=== PATIENT | male | born 1945 | race Caucasian/White ===

== ENCOUNTER 2018-08-09 06:41 | Emergency (ER) | payer OTHER ==
[2018-08-09 06:57] VITALS: TEMP 97.8; BMI 29.9
--- NOTE | 2018-08-09 07:20 | PDOC ---
Attending Attestation - Resident Resident Name: Aminta Bauer - ED Attending Attestation I have performed the following: I have examined & evaluated the patient, The case was reviewed & discussed with the resident, I agree w/resident's findings & plan, Exceptions are as noted - HPI HPI: 08/09/18 07:56 73y hx of bph presents with urinary retention. The pt endores having a decreaesd urine stream recently, and notes he hasnt easily urinated since last night. He was able to force out a small amount of urine this morning. deines fever/chills, back pain, cp, n/v, dysuria, diarrhea. on exam: pt has a slightly distended abdomen delfina tis ttp uncircumcised penis no cva tenderness unable pass a coudet will notify urology 08/09/18 10:14 pierre placed by urology pierre draining will dc with flomax pt feeling significna timproved labs nromal - Physicial Exam PE: 08/09/18 10:14 see above
--- NOTE | 2018-08-09 07:51 | PDOC ---
History of Present Illness - General Chief Complaint: Pain, Acute Stated Complaint: ABD PAIN Time Seen by Provider: 08/09/18 07:00 History Source: Patient - History of Present Illness Initial Comments: 08/09/18 07:32 73M w/ pmhx of BPH presents with inability to urinate since 6 pm last night. Pt at bedside with his family. Denies having these symptoms before, however and not currently taking any medications for BPH. Per , she has noticed pt has had poor urinary stream over the past couple of months. Pt not currently on BPH meds. Denies hx of kidney stones, fam hx of kidney stones, kidney issues. Denies dysuria, hematuria, or discharge. Of note, pt saw a urologist many years ago and was told he had slight inflammation, however no intervention was needed at the time. Denies fever/chills, headache/dizziness, nausea/vomiting, difficulty walking. Admits to chronic back pain. Not currently on any daily meds. PCP: Dr. 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 Past History - Past Medical History Allergies/Adverse Reactions: Allergies Allergy/AdvReac Type Severity Reaction Status Date / Time No Known Allergies Allergy Verified 08/09/18 08:14 Home Medications: Ambulatory Orders NK [No Known Home Medication] 08/09/18 - Suicide/Smoking/Psychosocial Hx Smoking History: Never smoked Have you smoked in the past 12 months: No Information on smoking cessation initiated: No Hx Alcohol Use: No Drug/Substance Use Hx: No Review of Systems - Review of Systems Able to Perform ROS?: Yes Is the patient limited Stateless proficient: No Constitutional: No: Chills, Fever Respiratory: No: Shortness of Breath Cardiac (ROS): No: Chest Pain ABD/GI: No: Constipated, Diarrhea : Yes: Incontinence, Other (bladder distension). No: Burning, Dysuria, Discharge Musculoskeletal: Yes: Back Pain (chronic) Neurological: No: Headache *Physical Exam - Vital Signs Last Vital Signs Temp Pulse Resp BP Pulse Ox 97.8 F 127 H 19 150/107 H 96 08/09/18 06:51 08/09/18 06:51 08/09/18 06:51 08/09/18 06:51 08/09/18 06:51 - Physical Exam General Appearance: Yes: Apparent Distress HEENT: positive: Normal Voice Neck: positive: Supple Respiratory/Chest: positive: Lungs Clear, Normal Breath Sounds Cardiovascular: positive: Regular Rhythm, Regular Rate, S1, S2. negative: Murmur Gastrointestinal/Abdominal: positive: Distended (bladder distension) Male Genitalia: positive: normal genitalia. negative: discharge Extremity: negative: Pedal Edema, Swelling Integumentary: positive: Normal Color, Dry, Warm Neurologic: positive: qa tester II-XII NML intact, Fully Oriented, Alert ED Treatment Course - LABORATORY CBC & Chemistry Diagram: 08/09/18 08:06 08/09/18 08:06 Medical Decision Making - Medical Decision Making 08/09/18 08:19 73M w/ pmhx of BPH presents with inability to urinate since 6pm last night. 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 Potter, will assess pt in the ED 08/09/18 08:58 -Peirre catheter inserted by uro; Recommended pt to discharge home with pierre catheter and follow up outpatient. Rx Flomax per uro recs. 08/09/18 09:08 -CBC showed slightly elevated WBC 11.6, although may be reactive due to pain. CMP unremarkable. -U/A and UCx ordered 08/09/18 10:04 -U/A neg, some RBCs shown, but likely due to trauma from initial catheter insertion. DC to home with recommendations stated above. Case discussed with Dr. Leonard. (ED attending) -Aminta Bauer DO - PGY1 *DC/Admit/Observation/Transfer Diagnosis at time of Disposition: Urinary retention due to benign prostatic hyperplasia - Discharge Dispostion Disposition: HOME Condition at time of disposition: Improved Decision to Admit order: No - Referrals Referrals: Wil Potter MD [Staff Physician] - - Patient Instructions Printed Discharge Instructions: How to Care for Your Pierre Catheter -- Male, DI for Benign Prostatic Hyperplasia Additional Instructions: You were seen in the ED for complaints of urinary retention. In the ED, you were seen by a urologist and a pierre catheter was placed to relieve your urinary retention. Your symptoms improved during your ED visit. There is no acute need for hospitalization at this time. You are being discharged home. MEDICATION RECOMMENDATIONS Please take Flomax 0.4 mg once a day. CONSULT RECOMMENDATIONS: Please follow up with your urologist, Dr. Potter, within 1 week for further evaluation of your symptoms. If you experience worsening abdominal pain, persistent bladder distension, blood or discharge in your urine, or persistent pain associated with your catheter, fever/chills proceed to your nearest emergency room immediately. - Post Discharge Activity
[2018-08-09 08:21] LABS: BASO % 0.3 % (0-2.0); HEMATOCRIT 46.3 % (35.4-49); HEMOGLOBIN 15.2 GM/dL (11.7-16.9); LYMPH % 7.2 % (8-40); MCH 29.5 pg (25.7-33.7); MCHC 32.9 g/dl (32.0-35.9); MEAN CELL VOLUME 89.5 fl (80-96); MEAN PLT VOLUME 8.9 fl (7.5-11.1); MONO % 4.8 % (3.8-10.2); NEUT % 87.7 % (42.8-82.8); PLATELET COUNT 221 K/MM3 (134-434); RBC 5.17 M/mm3 (4.00-5.60); RDW 14.4 % (11.9-15.9); WHITE BLOOD COUNT 11.6 K/mm3 (4.0-10.0)
[2018-08-09 08:48] LABS: ALBUMIN 4.2 g/dl (3.4-5.0); ALK PHOS 70 U/L (45-117); ANION GAP 9 MMOL/L (8-16); BILIRUBIN,TOTAL 0.5 mg/dL (0.2-1); BLOOD UREA NITROGEN 16 mg/dL (7-18); CALCIUM 9.4 mg/dL (8.5-10.1); CHLORIDE 106 mmol/L (98-107); CO2 23 mmol/L (21-32); GLUCOSE,RANDOM 108 mg/dL (74-106); POTASSIUM 4.2 mmol/L (3.5-5.1); SGOT/AST 27 U/L (15-37); SGPT/ALT 31 U/L (13-61); SODIUM 137 mmol/L (136-145); TOT PROT 7.7 g/dl (6.4-8.2)
--- NOTE | 2018-08-09 08:59 | CON.GU ---
Consult - History of Present Illness History of Present Illness: 73 yo male with h/o BPH/phimosis, now with retention, pierre could not be placed by ER staff - Alcohol/Substance Use Hx Alcohol Use: No - Smoking History Smoking history: Never smoked Have you smoked in the past 12 months: No Home Medications - Allergies Allergies/Adverse Reactions: Allergies Allergy/AdvReac Type Severity Reaction Status Date / Time No Known Allergies Allergy Verified 08/09/18 08:14 - Home Medications Home Medications: Ambulatory Orders NK [No Known Home Medication] 08/09/18 Physical Exam- Vital Signs: Vital Signs Temperature 97.8 F 08/09/18 06:51 Pulse Rate 127 H 08/09/18 06:51 Respiratory Rate 19 08/09/18 06:51 Blood Pressure 150/107 H 08/09/18 06:51 O2 Sat by Pulse Oximetry (%) 96 08/09/18 06:51 Renal/: Yes: Bladder Distention Labs: CBC, BMP 08/09/18 08:06 08/09/18 08:06 Problem List - Problems (1) Urinary retention due to benign prostatic hyperplasia Assessment/Plan: 18 fr coude placed, approx 1liter of urine retrieved Code(s): N40.1 - BENIGN PROSTATIC HYPERPLASIA WITH LOWER URINARY TRACT SYMP; R33.8 - OTHER RETENTION OF URINE
[2018-08-09 09:36] LABS: URINE APPEARANCE CLEAR; URINE BILIRUBIN NEGATIVE (<2.0 mg/dL); URINE COLOR LTYELLOW; URINE GLUCOSE (UA) NEGATIVE (NEGATIVE); URINE KETONE TRACE (NEGATIVE); URINE LEUK ESTERASE NEGATIVE (NEGATIVE); URINE NITRITE NEGATIVE (NEGATIVE); URINE PROTEIN NEGATIVE (NEGATIVE); URINE UROBILINOGEN NEGATIVE mg/dL (0.2-1.0)
[2018-08-09 09:59] LABS: URINE MUCUS RARE
[2018-08-09 10:15] VITALS: BP 114/96; PULSE 106
== END 2018-08-09 10:18 | disposition home or self-care (01) ==
LOC: JER 06:41
DX: N40.1 Benign prostatic hyperplasia with lower urinary tract symptoms (principal); R33.8 Other retention of urine
CPT/HCPCS: 36415; 80053; 81003; 81015; 85025; 87086; 99283-25

== ENCOUNTER 2021-05-11 18:05 | Inpatient (IN) | payer OTHER ==
[2021-05-11] MEDS ORDERED: SODIUM CHLORIDE 0.9% 500 ML INFUS.BAG IV ONE (20:11)
[2021-05-11 21:37] LABS: BASO % 0.3 % (0-2.0); EOS % 0.3 % (0-4.5); HEMATOCRIT 30.4 % (35.4-49); HEMOGLOBIN 10.1 GM/dL (11.7-16.9); LYMPH % 5.5 % (8-40); MCH 27.8 pg (25.7-33.7); MCHC 33.4 g/dl (32.0-35.9); MEAN CELL VOLUME 83.2 fl (80-96); MEAN PLT VOLUME 7.6 fl (7.5-11.1); MONO % 6.9 % (3.8-10.2); PLATELET COUNT 404 10^3/uL (134-434); RBC 3.65 M/mm3 (4.00-5.60); RDW 14.4 % (11.9-15.9); WHITE BLOOD COUNT 18.7 K/mm3 (4.0-10.0)
[2021-05-11 21:52] LABS: CHLORIDE 103 mmol/L (98-107); SODIUM 135 mmol/L (136-145)
[2021-05-11 22:19] LABS: EPI CELLS 10 /uL (0-25.1); HYALINE CASTS 4 /uL (0-3.1); PH,URINE 5.5 (5.0-8.0); URINE APPEARANCE CLEAR; URINE BACTERIA 19 /uL (0-1359); URINE BILIRUBIN NEGATIVE (NEGATIVE); URINE COLOR DK YELLOW; URINE GLUCOSE (UA) NEGATIVE (NEGATIVE); URINE KETONE NEGATIVE (NEGATIVE); URINE LEUK ESTERASE NEGATIVE (NEGATIVE); URINE NITRITE NEGATIVE (NEGATIVE); URINE PROTEIN 1+ (NEGATIVE); URINE RBC 11 /uL (0-23.9); URINE WBC 32 /uL (0-25.8)
[2021-05-11 22:19] LABS: ALBUMIN 1.7 g/dl (3.4-5.0); ALK PHOS 154 U/L (45-117); ANION GAP 8 MMOL/L (8-16); BILIRUBIN,TOTAL 0.4 mg/dL (0.2-1); BLOOD UREA NITROGEN 19.9 mg/dL (7-18); CALCIUM 8.1 mg/dL (8.5-10.1); CO2 23 mmol/L (21-32); CREATININE 0.8 mg/dL (0.55-1.3); GLUCOSE,RANDOM 122 mg/dL (74-106); MAGNESIUM 2.5 mg/dL (1.8-2.4); PHOSPHOROUS 3.2 mg/dL (2.5-4.9); SGOT/AST 195 U/L (15-37); SGPT/ALT 188 U/L (13-61)
[2021-05-11 23:24] LABS: INR 1.44 (0.83-1.09); PROTHROMBIN TIME (PATIENT) 17.2 SEC (9.7-13.0)
[2021-05-11 23:27] LABS: ACTIVATED PTT 29.4 SECONDS (25.2-36.5)
[2021-05-12] MEDS ORDERED: AZITHROMYCIN IVPB 500 MG in DEXTROSE 5%-WATER - 250 ML IVPB ONE (01:31)
[2021-05-12] MEDS ORDERED: CEFTRIAXONE 1 GM in DEXTROSE 5%-WATER - 100 ML IVPB ONE (01:31)
[2021-05-12] MEDS ORDERED: AZITHROMYCIN IVPB 500 MG/250 ML BAG IVPB ONE (01:43)
[2021-05-12] MEDS ORDERED: CEFTRIAXONE 1 GM/50 ML BAG ONE (01:43)
[2021-05-12 02:26] LABS: RETICULOCYTES 1.32 % (0.5-1.5)
[2021-05-12 02:28] LABS: GAMMA GLUTAMYL TRANSPEPTIDASE 58 U/L (5-85)
[2021-05-12 02:32] LABS: IRON SERUM 15 ug/dL (50-175)
[2021-05-12 02:36] LABS: TOTAL IRON BINDING CAPACITY 110 ug/dL (250-450)
[2021-05-12] MEDS ORDERED: VANCOMYCIN 1 GM in D5W (PRE-DOCKED) 1,000 MG/250 ML IVPB ONE (04:36)
[2021-05-12] MEDS ORDERED: SODIUM CHLORIDE FOR INHALATION 3 ML VIAL.NEB IH ONE (04:39)
[2021-05-12] MEDS ORDERED: SODIUM CHLORIDE 1,000 ML IV SCH (04:45)
[2021-05-12] MEDS ORDERED: PIPERACILLIN/TAZOB 3.375 GM 3.375 GM/50 ML BAG IVPB ONE ×2 (06:13→12:26)
[2021-05-12] MEDS: PIPERACILLIN/TAZOB 3.375 GM 3.375 GM in DEXTROSE 5%-WATER - 50 ML IVPB SCH ×2 (06:45→13:15)
[2021-05-12] MEDS ORDERED: VANCOMYCIN 1 GRAM (PRE-DOCKED) 1,000 MG/250 ML BAG IVPB ONE (07:21)
[2021-05-12 08:18] LABS: CALCIUM 7.9 mg/dL (8.5-10.1)
[2021-05-12 08:19] LABS: ALBUMIN 1.6 g/dl (3.4-5.0); BLOOD UREA NITROGEN 15.9 mg/dL (7-18)
[2021-05-12 08:20] LABS: MAGNESIUM 2.5 mg/dL (1.8-2.4)
[2021-05-12 08:22] LABS: CREATININE 0.7 mg/dL (0.55-1.3); PHOSPHOROUS 3.5 mg/dL (2.5-4.9)
[2021-05-12 08:24] LABS: BILIRUBIN,TOTAL 0.5 mg/dL (0.2-1); TOT PROT 5.8 g/dl (6.4-8.2)
[2021-05-12] MEDS ORDERED: POLYETHYLENE GLYCOL (HEALTHYLAX) 3350 17 GM PACKET ONE (11:32)
[2021-05-12] MEDS ORDERED: ENOXAPARIN NA (PORCINE) 40 MG/0.4 ML DISP.SYRIN SQ ONE (11:33)
[2021-05-12] MEDS: IRON SUCROSE INJECTION 100 MG in SODIUM CHLORIDE 95 ML IVPB SCH (11:50)
[2021-05-12] MEDS: ENOXAPARIN NA (PORCINE) 40 MG/0.4 ML DISP.SYRIN SQ SCH (12:03)
[2021-05-12] MEDS: POLYETHYLENE GLYCOL (HEALTHYLAX) 3350 17 GM PACKET PO SCH ×2 (12:04→22:51)
[2021-05-12 14:13] LABS: HIV INTERPRETATION NEGATIVE (NEGATIVE)
[2021-05-12] MEDS ORDERED: ACETAMINOPHEN 325 MG TABLET (FP) PO PRN (17:13)
[2021-05-12] MEDS ORDERED: ACETAMINOPHEN 325 MG TABLET (FP) ONE (17:38)
[2021-05-13] MEDS ORDERED: PIPERACILLIN/TAZOBACTAM 3.375 GM VIAL IVPB ONE ×3 (01:04→16:33)
[2021-05-13] MEDS ORDERED: DEXTROSE 5%-WATER - 50 ML IVPB ONE ×3 (01:05→16:33)
[2021-05-13] MEDS: PIPERACILLIN/TAZOB 3.375 GM 3.375 GM in DEXTROSE 5%-WATER - 50 ML IVPB SCH ×4 (01:27→17:27)
[2021-05-13 08:15] LABS: BASO % 0.2 % (0-2.0); EOS % 1.2 % (0-4.5); HEMATOCRIT 30.7 % (35.4-49); HEMOGLOBIN 10.1 GM/dL (11.7-16.9); LYMPH % 7.2 % (8-40); MCH 28.2 pg (25.7-33.7); MEAN CELL VOLUME 85.5 fl (80-96); MEAN PLT VOLUME 8.4 fl (7.5-11.1); NEUT % 84.4 % (42.8-82.8); PLATELET COUNT 402 10^3/uL (134-434); RBC 3.59 M/mm3 (4.00-5.60); RDW 14.4 % (11.9-15.9); WHITE BLOOD COUNT 16.3 K/mm3 (4.0-10.0)
[2021-05-13 08:34] LABS: ALBUMIN 1.6 g/dl (3.4-5.0)
[2021-05-13 08:35] LABS: BLOOD UREA NITROGEN 13.9 mg/dL (7-18); MAGNESIUM 2.5 mg/dL (1.8-2.4)
[2021-05-13 08:38] LABS: CREATININE 0.7 mg/dL (0.55-1.3); PHOSPHOROUS 3.8 mg/dL (2.5-4.9)
[2021-05-13 08:39] LABS: BILIRUBIN,TOTAL 0.5 mg/dL (0.2-1); TOT PROT 5.8 g/dl (6.4-8.2)
[2021-05-13] MEDS ORDERED: traMADol HCL 50 MG TABLET PO PRN (09:14)
[2021-05-13] MEDS: ENOXAPARIN NA (PORCINE) 40 MG/0.4 ML DISP.SYRIN SQ SCH (09:54)
[2021-05-13] MEDS: POLYETHYLENE GLYCOL (HEALTHYLAX) 3350 17 GM PACKET PO SCH ×2 (09:54→22:21)
[2021-05-13] MEDS: IRON SUCROSE INJECTION 100 MG in SODIUM CHLORIDE 95 ML IVPB SCH (10:51)
[2021-05-13 15:36] VITALS: BMI 27.1
[2021-05-13] MEDS ORDERED: PHYTONADIONE 10 MG/1 ML AMP IVPB ONE (17:02)
[2021-05-13 17:11] LABS: HEP B CORE AB, TOT Negative (Negative)
[2021-05-13] MEDS: AMINO ACIDS/PROTEIN HYDROLYS 30 ML LIQUID.PKT PO SCH (17:27)
[2021-05-14] MEDS ORDERED: PIPERACILLIN/TAZOBACTAM 3.375 GM VIAL IVPB ONE ×3 (01:41→17:24)
[2021-05-14] MEDS ORDERED: DEXTROSE 5%-WATER - 50 ML IVPB ONE ×3 (01:41→17:24)
[2021-05-14] MEDS: PIPERACILLIN/TAZOB 3.375 GM 3.375 GM in DEXTROSE 5%-WATER - 50 ML IVPB SCH ×3 (01:54→17:30)
[2021-05-14 07:51] LABS: BASO % 0.3 % (0-2.0); EOS % 0.9 % (0-4.5); HEMATOCRIT 28.4 % (35.4-49); HEMOGLOBIN 9.5 GM/dL (11.7-16.9); MCH 27.9 pg (25.7-33.7); MCHC 33.5 g/dl (32.0-35.9); MEAN CELL VOLUME 83.4 fl (80-96); MEAN PLT VOLUME 7.8 fl (7.5-11.1); MONO % 8.6 % (3.8-10.2); NEUT % 82.2 % (42.8-82.8); PLATELET COUNT 415 10^3/uL (134-434); RBC 3.41 M/mm3 (4.00-5.60); RDW 14.4 % (11.9-15.9); WHITE BLOOD COUNT 15.8 K/mm3 (4.0-10.0)
[2021-05-14 07:56] LABS: INR 1.38 (0.83-1.09); PROTHROMBIN TIME (PATIENT) 16.6 SEC (9.7-13.0)
[2021-05-14 08:10] LABS: CALCIUM 7.9 mg/dL (8.5-10.1)
[2021-05-14 08:11] LABS: ALBUMIN 1.4 g/dl (3.4-5.0); BLOOD UREA NITROGEN 14.2 mg/dL (7-18)
[2021-05-14 08:14] LABS: BILIRUBIN,TOTAL 0.7 mg/dL (0.2-1); CREATININE 0.7 mg/dL (0.55-1.3); TOT PROT 5.4 g/dl (6.4-8.2)
[2021-05-14] MEDS: ENOXAPARIN NA (PORCINE) 40 MG/0.4 ML DISP.SYRIN SQ SCH (10:46)
[2021-05-14] MEDS: POLYETHYLENE GLYCOL (HEALTHYLAX) 3350 17 GM PACKET PO SCH ×2 (10:47→21:14)
[2021-05-14] MEDS: IRON SUCROSE INJECTION 100 MG in SODIUM CHLORIDE 95 ML IVPB SCH (10:47)
[2021-05-14] MEDS: AMINO ACIDS/PROTEIN HYDROLYS 30 ML LIQUID.PKT PO SCH ×2 (10:47→17:29)
[2021-05-15] MEDS ORDERED: PIPERACILLIN/TAZOBACTAM 3.375 GM VIAL IVPB ONE ×3 (01:41→17:17)
[2021-05-15] MEDS ORDERED: DEXTROSE 5%-WATER - 50 ML IVPB ONE ×3 (01:41→17:17)
[2021-05-15] MEDS: PIPERACILLIN/TAZOB 3.375 GM 3.375 GM in DEXTROSE 5%-WATER - 50 ML IVPB SCH ×2 (01:53→10:58)
[2021-05-15 06:49] LABS: BASO % 0.4 % (0-2.0); EOS % 1.1 % (0-4.5); HEMATOCRIT 29.9 % (35.4-49); HEMOGLOBIN 9.9 GM/dL (11.7-16.9); LYMPH % 7.2 % (8-40); MCH 27.9 pg (25.7-33.7); MCHC 33.2 g/dl (32.0-35.9); MEAN CELL VOLUME 84.2 fl (80-96); MEAN PLT VOLUME 7.7 fl (7.5-11.1); MONO % 6.8 % (3.8-10.2); NEUT % 84.5 % (42.8-82.8); PLATELET COUNT 448 10^3/uL (134-434); RBC 3.55 M/mm3 (4.00-5.60); RDW 14.4 % (11.9-15.9); WHITE BLOOD COUNT 16.7 K/mm3 (4.0-10.0)
[2021-05-15 06:55] LABS: INR 1.33 (0.83-1.09); PROTHROMBIN TIME (PATIENT) 16.2 SEC (9.7-13.0)
[2021-05-15 07:16] LABS: ALBUMIN 1.5 g/dl (3.4-5.0); CALCIUM 7.8 mg/dL (8.5-10.1)
[2021-05-15 07:17] LABS: BLOOD UREA NITROGEN 13.8 mg/dL (7-18)
[2021-05-15 07:20] LABS: CREATININE 0.7 mg/dL (0.55-1.3)
[2021-05-15 07:21] LABS: BILIRUBIN,TOTAL 0.6 mg/dL (0.2-1); TOT PROT 5.5 g/dl (6.4-8.2)
[2021-05-15 09:10] LABS: ANISOCYTOSIS 0; HELMET CELLS 0; HOWELL-JOLLY BODIES 0; MACROCYTOSIS 0; OVALOCYTE 0; PLATELET ESTIMATE NORMAL; ROULEAU 0; SICKELED CELLS 0; TARGET CELLS 0; TEAR DROP CELLS 0; TOXIC GRANULATION 0
[2021-05-15] MEDS: POLYETHYLENE GLYCOL (HEALTHYLAX) 3350 17 GM PACKET PO SCH ×2 (10:58→22:00)
[2021-05-15] MEDS: AMINO ACIDS/PROTEIN HYDROLYS 30 ML LIQUID.PKT PO SCH ×2 (10:58→17:31)
[2021-05-15] MEDS: ENOXAPARIN NA (PORCINE) 40 MG/0.4 ML DISP.SYRIN SQ SCH (10:58)
[2021-05-16 07:41] LABS: BASO % 0.2 % (0-2.0); HEMATOCRIT 30.3 % (35.4-49); HEMOGLOBIN 10.1 GM/dL (11.7-16.9); LYMPH % 7.8 % (8-40); MCH 27.9 pg (25.7-33.7); MCHC 33.2 g/dl (32.0-35.9); MEAN CELL VOLUME 83.9 fl (80-96); MEAN PLT VOLUME 7.7 fl (7.5-11.1); MONO % 5.9 % (3.8-10.2); NEUT % 85.1 % (42.8-82.8); PLATELET COUNT 462 10^3/uL (134-434); RBC 3.61 M/mm3 (4.00-5.60); RDW 14.6 % (11.9-15.9)
[2021-05-16 07:45] LABS: INR 1.35 (0.83-1.09); PROTHROMBIN TIME (PATIENT) 16.2 SEC (9.7-13.0)
[2021-05-16 07:50] LABS: ALBUMIN 1.5 g/dl (3.4-5.0)
[2021-05-16 07:51] LABS: BLOOD UREA NITROGEN 15.6 mg/dL (7-18)
[2021-05-16 07:54] LABS: CREATININE 0.9 mg/dL (0.55-1.3)
[2021-05-16 07:55] LABS: BILIRUBIN,TOTAL 0.6 mg/dL (0.2-1); TOT PROT 5.8 g/dl (6.4-8.2)
[2021-05-16] MEDS: ENOXAPARIN NA (PORCINE) 40 MG/0.4 ML DISP.SYRIN SQ SCH (10:20)
[2021-05-16] MEDS: AMINO ACIDS/PROTEIN HYDROLYS 30 ML LIQUID.PKT PO SCH ×2 (10:20→17:02)
[2021-05-16] MEDS: POLYETHYLENE GLYCOL (HEALTHYLAX) 3350 17 GM PACKET PO SCH ×2 (10:20→21:30)
[2021-05-16 16:08] LABS: IGA IMMUNOGLOBULIN 207 mg/dL (61-437); IGG QN IMMUNOGLOBULIN 1191 mg/dL (603-1613); IGM QN SERUM 30 mg/dL (15-143)
[2021-05-16 19:06] LABS: GLIADIN ANTIBODY IGA 7 units (0-19); GLIADIN ANTIBODY IGG 2 units (0-19); TRANSGLUTAMINASE IGG 4 U/mL (0-5)
[2021-05-17 08:35] LABS: BASO % 0.4 % (0-2.0); LYMPH % 7.2 % (8-40); MCH 27.8 pg (25.7-33.7); MCHC 33.2 g/dl (32.0-35.9); MEAN CELL VOLUME 83.7 fl (80-96); MEAN PLT VOLUME 7.4 fl (7.5-11.1); NEUT % 84.4 % (42.8-82.8); PLATELET COUNT 475 10^3/uL (134-434); RBC 3.58 M/mm3 (4.00-5.60); RDW 14.4 % (11.9-15.9); WHITE BLOOD COUNT 13.1 K/mm3 (4.0-10.0)
[2021-05-17 08:55] LABS: CALCIUM 7.9 mg/dL (8.5-10.1)
[2021-05-17 08:56] LABS: ALBUMIN 1.5 g/dl (3.4-5.0); BLOOD UREA NITROGEN 14.9 mg/dL (7-18)
[2021-05-17 08:59] LABS: CREATININE 0.7 mg/dL (0.55-1.3)
[2021-05-17 09:01] LABS: BILIRUBIN,TOTAL 0.4 mg/dL (0.2-1); TOT PROT 5.8 g/dl (6.4-8.2)
[2021-05-17] MEDS: ENOXAPARIN NA (PORCINE) 40 MG/0.4 ML DISP.SYRIN SQ SCH (09:55)
[2021-05-17] MEDS: AMINO ACIDS/PROTEIN HYDROLYS 30 ML LIQUID.PKT PO SCH ×2 (09:55→17:03)
[2021-05-17] MEDS: POLYETHYLENE GLYCOL (HEALTHYLAX) 3350 17 GM PACKET PO SCH ×2 (09:55→21:54)
[2021-05-17] MEDS: FOLIC ACID 1 MG TABLET (FP) PO SCH (09:55)
[2021-05-17] MEDS: CYANOCOBALAMIN (VITAMIN B-12) 100 MCG TABLET PO SCH (10:44)
[2021-05-17 17:06] LABS: FREE KAPPA,SERUM 56.6 mg/L (3.3-19.4)
[2021-05-17] MEDS ORDERED: PT OWN MED DRAWER 7, Y5N ONE (21:05)
[2021-05-17] MEDS: BANATROL PLUS POWDER PACKET PO SCH (21:54)
[2021-05-18] MEDS: BANATROL PLUS POWDER PACKET PO SCH ×3 (06:11→21:33)
[2021-05-18 08:03] LABS: BASO % 0.4 % (0-2.0); HEMATOCRIT 29.9 % (35.4-49); MCHC 33.4 g/dl (32.0-35.9); MEAN CELL VOLUME 83.8 fl (80-96); MEAN PLT VOLUME 7.5 fl (7.5-11.1); MONO % 6.8 % (3.8-10.2); NEUT % 82.8 % (42.8-82.8); PLATELET COUNT 534 10^3/uL (134-434); RBC 3.56 M/mm3 (4.00-5.60); RDW 14.9 % (11.9-15.9)
[2021-05-18] MEDS: AMINO ACIDS/PROTEIN HYDROLYS 30 ML LIQUID.PKT PO SCH ×2 (08:19→17:24)
[2021-05-18 08:22] LABS: BLOOD UREA NITROGEN 13.2 mg/dL (7-18)
[2021-05-18 08:25] LABS: CREATININE 0.6 mg/dL (0.55-1.3)
[2021-05-18] MEDS ORDERED: PT OWN MED DRAWER 7, Y5N ONE ×2 (09:52→22:01)
[2021-05-18] MEDS: ENOXAPARIN NA (PORCINE) 40 MG/0.4 ML DISP.SYRIN SQ SCH (10:20)
[2021-05-18] MEDS: CYANOCOBALAMIN (VITAMIN B-12) 100 MCG TABLET PO SCH (10:21)
[2021-05-18] MEDS: POLYETHYLENE GLYCOL (HEALTHYLAX) 3350 17 GM PACKET PO SCH ×2 (10:21→22:02)
[2021-05-18] MEDS: FOLIC ACID 1 MG TABLET (FP) PO SCH (10:21)
[2021-05-18 18:53] LABS: URINE APPEARANCE CLEAR; URINE BILIRUBIN NEGATIVE (NEGATIVE); URINE COLOR YELLOW; URINE GLUCOSE (UA) NEGATIVE (NEGATIVE); URINE KETONE NEGATIVE (NEGATIVE); URINE LEUK ESTERASE NEGATIVE (NEGATIVE); URINE NITRITE NEGATIVE (NEGATIVE); URINE PROTEIN NEGATIVE (NEGATIVE); URINE UROBILINOGEN 0.2 mg/dL (0.2-1.0)
[2021-05-19] MEDS ORDERED: PT OWN MED DRAWER 7, Y5N ONE ×6 (03:01→21:16)
[2021-05-19] MEDS: BANATROL PLUS POWDER PACKET PO SCH ×3 (06:33→21:17)
[2021-05-19] MEDS: AMINO ACIDS/PROTEIN HYDROLYS 30 ML LIQUID.PKT PO SCH ×3 (09:07→17:30)
[2021-05-19] MEDS: FOLIC ACID 1 MG TABLET (FP) PO SCH (09:07)
[2021-05-19] MEDS: CYANOCOBALAMIN (VITAMIN B-12) 100 MCG TABLET PO SCH (09:08)
[2021-05-19] MEDS: POLYETHYLENE GLYCOL (HEALTHYLAX) 3350 17 GM PACKET PO SCH ×2 (09:08→21:17)
[2021-05-19] MEDS: ENOXAPARIN NA (PORCINE) 40 MG/0.4 ML DISP.SYRIN SQ SCH (09:25)
[2021-05-20] MEDS ORDERED: PT OWN MED DRAWER 7, Y5N ONE ×4 (05:37→21:07)
[2021-05-20] MEDS: BANATROL PLUS POWDER PACKET PO SCH ×3 (05:56→21:09)
[2021-05-20 07:42] LABS: BASO % 0.7 % (0-2.0); EOS % 1.1 % (0-4.5); HEMATOCRIT 29.5 % (35.4-49); HEMOGLOBIN 9.8 GM/dL (11.7-16.9); LYMPH % 11.4 % (8-40); MCH 28.1 pg (25.7-33.7); MCHC 33.3 g/dl (32.0-35.9); MEAN CELL VOLUME 84.2 fl (80-96); MEAN PLT VOLUME 7.7 fl (7.5-11.1); MONO % 6.6 % (3.8-10.2); NEUT % 80.2 % (42.8-82.8); PLATELET COUNT 562 10^3/uL (134-434); RDW 14.9 % (11.9-15.9); WHITE BLOOD COUNT 11.9 K/mm3 (4.0-10.0)
[2021-05-20 08:04] LABS: CALCIUM 8.3 mg/dL (8.5-10.1)
[2021-05-20 08:05] LABS: ALBUMIN 1.7 g/dl (3.4-5.0); BLOOD UREA NITROGEN 11.8 mg/dL (7-18); CREATININE 0.7 mg/dL (0.55-1.3); MAGNESIUM 2.5 mg/dL (1.8-2.4)
[2021-05-20 08:08] LABS: PHOSPHOROUS 3.6 mg/dL (2.5-4.9)
[2021-05-20 08:13] LABS: BILIRUBIN,TOTAL 0.3 mg/dL (0.2-1); TOT PROT 6.9 g/dl (6.4-8.2)
[2021-05-20] MEDS: ENOXAPARIN NA (PORCINE) 40 MG/0.4 ML DISP.SYRIN SQ SCH (10:02)
[2021-05-20] MEDS: AMINO ACIDS/PROTEIN HYDROLYS 30 ML LIQUID.PKT PO SCH ×2 (10:02→17:19)
[2021-05-20] MEDS: POLYETHYLENE GLYCOL (HEALTHYLAX) 3350 17 GM PACKET PO SCH ×2 (10:02→21:05)
[2021-05-20] MEDS: FOLIC ACID 1 MG TABLET (FP) PO SCH (10:02)
[2021-05-20] MEDS ORDERED: IRON SUCROSE INJECTION 100 MG in SODIUM CHLORIDE 95 ML IVPB ONE (12:00)
[2021-05-20] MEDS: CYANOCOBALAMIN (VITAMIN B-12) 100 MCG TABLET PO SCH (12:04)
[2021-05-21] MEDS ORDERED: PT OWN MED DRAWER 7, Y5N ONE (06:01)
[2021-05-21] MEDS: BANATROL PLUS POWDER PACKET PO SCH ×4 (06:04→21:08)
[2021-05-21 08:07] LABS: DRVVT - 49.7 sec (0.0-47.0); DRVVT CONFIRM SECONDS 1.1 ratio (0.8-1.2); dRVVT MIX 43.6 sec (0.0-40.4)
[2021-05-21] MEDS: POLYETHYLENE GLYCOL (HEALTHYLAX) 3350 17 GM PACKET PO SCH ×2 (10:06→21:08)
[2021-05-21] MEDS: ENOXAPARIN NA (PORCINE) 40 MG/0.4 ML DISP.SYRIN SQ SCH (10:06)
[2021-05-21] MEDS: AMINO ACIDS/PROTEIN HYDROLYS 30 ML LIQUID.PKT PO SCH ×3 (10:07→17:17)
[2021-05-21] MEDS: CYANOCOBALAMIN (VITAMIN B-12) 100 MCG TABLET PO SCH (10:07)
[2021-05-21] MEDS: FOLIC ACID 1 MG TABLET (FP) PO SCH (10:07)
[2021-05-21] MEDS ORDERED: IRON SUCROSE INJECTION 100 MG in SODIUM CHLORIDE 95 ML IVPB ONE (11:00)
[2021-05-22] MEDS: BANATROL PLUS POWDER PACKET PO SCH ×3 (05:46→22:33)
[2021-05-22] MEDS ORDERED: PT OWN MED DRAWER 7, Y5N ONE ×2 (09:18→22:47)
[2021-05-22] MEDS: ENOXAPARIN NA (PORCINE) 40 MG/0.4 ML DISP.SYRIN SQ SCH (09:29)
[2021-05-22] MEDS: POLYETHYLENE GLYCOL (HEALTHYLAX) 3350 17 GM PACKET PO SCH ×2 (09:30→22:16)
[2021-05-22] MEDS: CYANOCOBALAMIN (VITAMIN B-12) 100 MCG TABLET PO SCH (09:30)
[2021-05-22] MEDS: FOLIC ACID 1 MG TABLET (FP) PO SCH (09:30)
[2021-05-22] MEDS: AMINO ACIDS/PROTEIN HYDROLYS 30 ML LIQUID.PKT PO SCH ×2 (09:30→17:13)
[2021-05-23] MEDS ORDERED: PT OWN MED DRAWER 7, Y5N ONE ×2 (05:49→08:53)
[2021-05-23] MEDS: BANATROL PLUS POWDER PACKET PO SCH ×2 (05:56→14:20)
[2021-05-23 07:35] LABS: BASO % 0.6 % (0-2.0); EOS % 1.4 % (0-4.5); HEMATOCRIT 28.4 % (35.4-49); HEMOGLOBIN 9.5 GM/dL (11.7-16.9); LYMPH % 14.8 % (8-40); MCH 28.1 pg (25.7-33.7); MCHC 33.6 g/dl (32.0-35.9); MEAN CELL VOLUME 83.7 fl (80-96); MEAN PLT VOLUME 6.8 fl (7.5-11.1); NEUT % 75.2 % (42.8-82.8); PLATELET COUNT 556 10^3/uL (134-434); RBC 3.39 M/mm3 (4.00-5.60); RDW 15.2 % (11.9-15.9); WHITE BLOOD COUNT 9.9 K/mm3 (4.0-10.0)
[2021-05-23 07:56] LABS: CALCIUM 8.5 mg/dL (8.5-10.1)
[2021-05-23 07:57] LABS: ALBUMIN 1.8 g/dl (3.4-5.0); BLOOD UREA NITROGEN 8.1 mg/dL (7-18)
[2021-05-23 08:00] LABS: CREATININE 0.7 mg/dL (0.55-1.3)
[2021-05-23 08:02] LABS: BILIRUBIN,TOTAL 0.4 mg/dL (0.2-1); TOT PROT 6.5 g/dl (6.4-8.2)
[2021-05-23] MEDS: CYANOCOBALAMIN (VITAMIN B-12) 100 MCG TABLET PO SCH (09:01)
[2021-05-23] MEDS: FOLIC ACID 1 MG TABLET (FP) PO SCH (09:01)
[2021-05-23] MEDS: ENOXAPARIN NA (PORCINE) 40 MG/0.4 ML DISP.SYRIN SQ SCH (09:01)
[2021-05-23] MEDS: AMINO ACIDS/PROTEIN HYDROLYS 30 ML LIQUID.PKT PO SCH ×2 (09:01→16:47)
[2021-05-23] MEDS: POLYETHYLENE GLYCOL (HEALTHYLAX) 3350 17 GM PACKET PO SCH (09:01)
[2021-05-23 18:28] VITALS: BP 112/60; PULSE 95; TEMP 98.4
== END 2021-05-23 18:46 | disposition home or self-care (01) | DRG 871 ==
LOC: JER 18:05 → JERBED 05-12 02:05 → J4S 05-12 19:41
PROVIDERS: ADMIT Internal Medicine
DX: A41.9 Sepsis, unspecified organism (principal); J18.9 Pneumonia, unspecified organism; J98.11 Atelectasis; B34.9 Viral infection, unspecified; N40.0 Benign prostatic hyperplasia without lower urinary tract symptoms; E88.09 Other disorders of plasma-protein metabolism, not elsewhere classified; D64.9 Anemia, unspecified; K59.09 Other constipation; R73.03 Prediabetes; R74.01 Elevation of levels of liver transaminase levels; R94.5 Abnormal results of liver function studies; G62.9 Polyneuropathy, unspecified
CPT/HCPCS: 36415; 70450-TC; 71045-TC-FY; 71260-TC; 72125-TC; 74177-TC; 76705-TC; 80048; 80053; 80307; 81003; 82085; 82105; 82272; 82330; 82378; 82550; 82607; 82728; 82746; 82784; 82977; 83036; 83516; 83540; 83550; 83605; 83615; 83735; 83883; 84100; 84153; 84155; 84165; 84439; 84443; 84484; 85025; 85045; 85379; 85610; 85613; 85651; 85730; 85732; 86038; 86140; 86301; 86376; 86431; 86480; 86618; 86704; 86705; 86706; 86707; 87040; 87045; 87046; 87077; 87086; 87116; 87177; 87205; 87206; 87207; 87209; 87324; 87340; 87389; 87449; 87517; 87522; 87798; 87899; 93880-TC; 93970-TC; 94761; 97116-GP; 97161-GP; 99285-25; C9803; J1756; U0003; U0005